=== PATIENT | female | born 1960 | race Caucasian/White ===

== ENCOUNTER 2016-07-22 09:50 | Day surgery (SDC) | payer BC ==
--- NOTE | ~2016-07-22 | EGD ---
EGD REPORT [facility] [address] [place] [address] NAME: CATHY RODRÍGUEZ : 64 STATUS : REG [facility] [place]#: [id number] AGE: 55 ADM/REG DATE : 07/22/16 MR#: [id number] REPORT SERV DATE: 07/22/16 DICTATED BY: ELPIDIO WEINBERG DATE: 07/22/16 REPORT STATUS : Draft TRANSCRIBED BY: [facility] DATE: 07/22/16 Endoscopy Center Patient Name: Cathy Rodríguez Date of : 1960 Attending MD: ELPIDIO WEINBERG MD Procedure Date No Time: 07/22/2016 Procedure: Upper GI endoscopy Indications: Heartburn, Suspected esophageal reflux, Diarrhea Referring MD: EVON ROJAS Medicines: as per anesthesia Complications: No immediate complications. Procedure: After obtaining informed consent, the endoscope was passed under direct vision. Throughout the procedure, the patient's blood pressure, pulse, and oxygen saturations were monitored continuously. The GIF [id number] was introduced through the mouth, and advanced to the third part of duodenum. The upper GI endoscopy was accomplished without difficulty. The patient tolerated the procedure. Findings: The examined esophagus was normal. A small hiatus hernia was present. The examined duodenum was normal. Biopsies were taken with a cold forceps for histology. Impression: - Normal esophagus. - Hiatus hernia. - Normal examined duodenum. Biopsied. Recommendation: - Await pathology results. - Follow an antireflux regimen. - Continue present medications. Procedure Code(s): --- Professional --- 60656, Esophagogastroduodenoscopy, flexible, transoral; with biopsy, single or multiple Diagnosis Code(s): --- Professional --- K44.9, Diaphragmatic hernia without obstruction or gangrene R12, Heartburn R19.7, Diarrhea, unspecified EGD REPORT [facility] [address] [place] [place]. [address] NAME: CATHY RODRÍGUEZ : 64 STATUS : REG [facility] [place] PAT#: [id number] AGE: 55 ADM/REG DATE : 07/22/16 MR#: [id number] REPORT SERV DATE: 07/22/16 DICTATED BY: ELPIDIO WEINBERG. DATE: 07/22/16 REPORT STATUS : Draft TRANSCRIBED BY: [employer] DATE: 07/22/16 CPT copyright 2013 [employer]. All rights reserved. The codes documented in this report are preliminary and upon hims coder review may be revised to meet current compliance requirements. ELPIDIO WEINBERG MD 07/22/2016 1:42 PM This report has been signed electronically. Number of Addenda: 0 Note Initiated On: 07/22/2016 1:14 PM Scope Withdrawal Time 0 hours 0 minutes 0 seconds [address] [facility] [address] [place] [place] [address]
[~2016-07-22 09:50] MED LIST: BIOTIN5 MG PO; CALTRAT600 PO; CLARIT10 PO; FISH-EPA1000 MG PO; MAGNEBIND PO; MULTIPLE VIT PO; PEPCID40 MG PO; TUMERIC; WELLXL300 PO
== END 2016-07-22 23:59 | disposition home or self-care (01) ==
LOC: DMU 09:50
PROVIDERS: Internal Medicine Gastroenterology
PROC: 0DB98ZX Excision of Duodenum, Via Natural or Artificial Opening Endoscopic, Diagnostic (ICD-10-PCS; principal; 2016-07-22 11:30)
DX: K44.9 Diaphragmatic hernia without obstruction or gangrene (principal); K21.9 Gastro-esophageal reflux disease without esophagitis; R19.7 Diarrhea, unspecified; Z79.899 Other long term (current) drug therapy; Z90.89 Acquired absence of other organs; Z98.890 Other specified postprocedural states
CPT/HCPCS: 84703; 88305